=== PATIENT | female | born 1945 | race Caucasian/White ===

== ENCOUNTER 2021-10-31 20:38 | Emergency (ER) | payer OTHER ==
[~2021-10-31] VITALS: Ht 152.4 cm; Wt 74.8 kg
[~2021-10-31 20:38] MED LIST: AVAPRO75 MG PO; LOPRESSOR25 MG PO; PLAVIX75 MG PO; VYTORIN 10/20 M1 TAB PO; ZOLOFT25 MG PO
[2021-11-01] MEDS ORDERED: XARELTO20 MG PO (15:07)
[2021-11-01] MEDS ORDERED: XARELTO15 MG PO (15:07)
== END 2021-10-31 22:58 | disposition home or self-care (01) ==
LOC: ER 20:38
DX: R60.0 Localized edema (principal); R22.41 Localized swelling, mass and lump, right lower limb; G30.8 Other Alzheimer's disease; F02.80 Dementia in other diseases classified elsewhere, unspecified severity, without behavioral disturbance, psychotic disturbance, mood disturbance, and anxiety

== ENCOUNTER 2021-11-01 11:09 | Emergency (ER) | payer OTHER ==
[~2021-11-01] VITALS: Ht 152.4 cm; Wt 74.8 kg
[2021-11-01] MEDS ORDERED: XARELTO20 MG PO (15:07)
[2021-11-01] MEDS ORDERED: XARELTO15 MG PO (15:07)
== END 2021-11-01 15:29 | disposition home or self-care (01) ==
LOC: ER 11:09
DX: I82.4Z1 Acute embolism and thrombosis of unspecified deep veins of right distal lower extremity (principal); M79.661 Pain in right lower leg